=== PATIENT | female | born 1990 | race Caucasian/White ===

== ENCOUNTER 2021-07-04 15:46 | Outpatient (CLI) | payer OTHER ==
[~2021-07-04 15:46] MED LIST: PRENATAL TABLE1 EAC2; PROFERRIN12 MG PO
[2021-07-04] MEDS ORDERED: PROMETRIUM200 MG PO (17:40)
== END 2021-07-04 16:58 | disposition home or self-care (01) ==
LOC: PRENATAL 15:46
PROVIDERS: ATTEND Obstetrics & Gynecology Maternal & Fetal Medicine
DX: O35.0XX1 Maternal care for (suspected) central nervous system malformation in fetus, fetus 1 (principal); O35.3XX1 Maternal care for (suspected) damage to fetus from viral disease in mother, fetus 1; O98.512 Other viral diseases complicating pregnancy, second trimester; O34.42 Maternal care for other abnormalities of cervix, second trimester; Z36.89 Encounter for other specified antenatal screening; Z3A.24 24 weeks gestation of pregnancy